=== PATIENT | female | born 1980 | race Caucasian/White ===

== ENCOUNTER 2023-10-02 14:17 | Outpatient (OUT) | payer MEDICAID, SELFPAY ==
--- NOTE | 2023-10-02 15:00 | MM_ITS ---
Patient Name: KARI AYON MR#: [id number] : 1980 Exam Date: 10/02/2023 Ordering Doctor: AYDEE Diana CNP RADIOLOGY REPORT PROCEDURE: MM TOMOSYNTHESIS SCREENING BI COMPARISON: None. INDICATIONS: Screening Calculator Name NCI Breast Cancer Risk Assessment Tool 5 Year Breast Cancer Risk 0.60% Lifetime Breast Cancer Risk 7.80% Personal Breast Cancer No Personal Ovarian Cancer No Treatments None Family Cancers Aunt-paternal with breast cancer at age ~60; Mother with uterine cancer at age 50; Father with rectal cancer at age 60. LOCATION: [facility] BREAST COMPOSITION: There are scattered areas of fibroglandular density. FINDINGS: DIAGNOSTIC CATEGORY 0--INCOMPLETE: NEED ADDITIONAL IMAGING EVALUATION. RIGHT BREAST: Several small masses versus lymph nodes within upper-outer quadrant. LEFT BREAST: Several small masses versus lymph nodes within upper-outer quadrant. RECOMMENDATIONS: ADDITIONAL MAMMOGRAPHIC VIEWS REQUIRED: BILATERAL BREASTS - RIGHT CRANIOCAUDAL SPOT MAGNIFICATION VIEW - RIGHT OBLIQUE SPOT MAGNIFICATION VIEW - LEFT CRANIOCAUDAL SPOT MAGNIFICATION VIEW - LEFT OBLIQUE SPOT MAGNIFICATION VIEW - ULTRASOUND: BILATERAL BREASTS PLEASE NOTE: A NORMAL MAMMOGRAM DOES NOT EXCLUDE THE POSSIBILITY OF BREAST CANCER. A CLINICALLY SUSPICIOUS PALPABLE LUMP SHOULD BE BIOPSIED. Dictated by: Ramos Dobbins M.D. on 10/03/2023 at 07:17 Approved by: Ramos Dobbins M.D. on 10/03/2023 at 07:21
== END 2023-10-02 14:18 | disposition home or self-care (01) ==
LOC: MAMMO 14:20
PROVIDERS: PCP Nurse Practitioner; Visit Provider Nurse Practitioner
DX: Z12.31 Encounter for screening mammogram for malignant neoplasm of breast (principal); Z80.3 Family history of malignant neoplasm of breast; Z80.8 Family history of malignant neoplasm of other organs or systems; R92.8 Other abnormal and inconclusive findings on diagnostic imaging of breast
CPT/HCPCS: 77063; 77067

== ENCOUNTER 2023-11-16 12:46 | Outpatient (OUT) | payer MEDICAID, SELFPAY ==
--- NOTE | 2023-11-16 | US_ITS ---
Patient Name: KARI AYON MR#: [id number] : 1980 Exam Date: 11/16/2023 Ordering Doctor: AYDEE Diana CNP RADIOLOGY REPORT PROCEDURE: MAMMOGRAM BILATERAL DIGANOSTIC DIGITAL FOLLOW UP, 11/16/2023, 12:49 US BREAST BI LIMITED, 11/16/2023, 13:14 COMPARISON: MM TOMOSYNTHESIS SCREENING BI, 10/02/2023. INDICATIONS: Abnormality Of Bilateral Breast Screening Mammogram Calculator Name NCI Breast Cancer Risk Assessment Tool 5 Year Breast Cancer Risk 0.60% Lifetime Breast Cancer Risk 7.80% Personal Breast Cancer No Personal Ovarian Cancer No Treatments None Family Cancers Aunt-paternal with breast cancer at age ~60; Mother with uterine cancer at age 50; Father with rectal cancer at age 60. LOCATION: [facility] BREAST COMPOSITION: There are scattered areas of fibroglandular density. FINDINGS: DIAGNOSTIC CATEGORY 2--BENIGN FINDING: RIGHT BREAST: Spot magnification views of the upper-outer quadrant demonstrate what appear to be several lymph nodes. Ultrasound evaluation demonstrates several benign-appearing lymph nodes within the axillary tail. No suspicious findings. LEFT BREAST: Spot magnification views of the upper-outer quadrant demonstrate what appear to be several lymph nodes. Ultrasound evaluation demonstrates several benign-appearing lymph nodes and a benign-appearing cyst within the axillary tail. No suspicious findings. RECOMMENDATIONS: ROUTINE MAMMOGRAM AND CLINICAL EVALUATION IN 12 MONTHS. PLEASE NOTE: A NORMAL MAMMOGRAM DOES NOT EXCLUDE THE POSSIBILITY OF BREAST CANCER. A CLINICALLY SUSPICIOUS PALPABLE LUMP SHOULD BE BIOPSIED. Dictated by: Ramos Dobbins M.D. on 11/16/2023 at 14:27 Approved by: Ramos Dobbins M.D. on 11/16/2023 at 14:36
--- NOTE | 2023-11-16 12:51 | MM_ITS ---
Patient Name: KARI AYON MR#: [id number] : 1980 Exam Date: 11/16/2023 Ordering Doctor: AYDEE Diana CNP RADIOLOGY REPORT PROCEDURE: MAMMOGRAM BILATERAL DIGANOSTIC DIGITAL FOLLOW UP, 11/16/2023, 12:49 US BREAST BI LIMITED, 11/16/2023, 13:14 COMPARISON: MM TOMOSYNTHESIS SCREENING BI, 10/02/2023. INDICATIONS: Abnormality Of Bilateral Breast Screening Mammogram Calculator Name NCI Breast Cancer Risk Assessment Tool 5 Year Breast Cancer Risk 0.60% Lifetime Breast Cancer Risk 7.80% Personal Breast Cancer No Personal Ovarian Cancer No Treatments None Family Cancers Aunt-paternal with breast cancer at age ~60; Mother with uterine cancer at age 50; Father with rectal cancer at age 60. LOCATION: [facility] BREAST COMPOSITION: There are scattered areas of fibroglandular density. FINDINGS: DIAGNOSTIC CATEGORY 2--BENIGN FINDING: RIGHT BREAST: Spot magnification views of the upper-outer quadrant demonstrate what appear to be several lymph nodes. Ultrasound evaluation demonstrates several benign-appearing lymph nodes within the axillary tail. No suspicious findings. LEFT BREAST: Spot magnification views of the upper-outer quadrant demonstrate what appear to be several lymph nodes. Ultrasound evaluation demonstrates several benign-appearing lymph nodes and a benign-appearing cyst within the axillary tail. No suspicious findings. RECOMMENDATIONS: ROUTINE MAMMOGRAM AND CLINICAL EVALUATION IN 12 MONTHS. PLEASE NOTE: A NORMAL MAMMOGRAM DOES NOT EXCLUDE THE POSSIBILITY OF BREAST CANCER. A CLINICALLY SUSPICIOUS PALPABLE LUMP SHOULD BE BIOPSIED. Dictated by: Ramos Dobbins M.D. on 11/16/2023 at 14:27 Approved by: Ramos Dobbins M.D. on 11/16/2023 at 14:36
== END 2023-11-16 12:47 | disposition home or self-care (01) ==
LOC: MAMMO 12:46
PROVIDERS: PCP Nurse Practitioner; Visit Provider Nurse Practitioner
DX: R92.8 Other abnormal and inconclusive findings on diagnostic imaging of breast (principal); Z80.3 Family history of malignant neoplasm of breast; Z80.8 Family history of malignant neoplasm of other organs or systems
CPT/HCPCS: 76642; 77066